=== PATIENT | female | born 1965 | race Caucasian/White ===

== ENCOUNTER 2024-04-24 18:49 | Emergency (ER) | payer BC, SELFPAY ==
[2024-04-24 18:51] VITALS: BP 110/74
--- NOTE | 2024-04-24 19:18 | ED.GENMED ---
History of Present Illness
General
Chief Complaint: Heart Rate Problem
Source: patient
Exam Limitations: none
Time Seen by Provider: 04/24/24 19:08
Nursing documentation reviewed up to this point in time: agreed with
History of Present Illness
History of Present Illness:
58-year-old female acute onset of palpitations hour or so ago she was up all night feeling insomnia, diarrheal illness which is chronic worsened after having some gluten, no fevers, similar episode a few years ago after her father passed and
follow-up with her business performance analyst Dr. 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
Review of Systems
Review of Systems
All Other Systems: Not applicable
Constitutional: Denies fever or fatigue
Respiratory: Reports no symptoms
Cardiac: Reports chest pain and palpitations; Denies diaphoresis
ABD/GI: Reports diarrhea
: Reports no symptoms
Musculoskeletal: Reports no symptoms
Skin: Reports no symptoms
Neurological: Reports dizzy
Psychiatric: Reports no symptoms
Phy Exam
Physical Exam
Physical Exam:
Physical Exam
General: 58 female mild distress
Neck: No jaundice
Heart: Tachycardia
Lungs: no acute respiratory distress. clear bilaterally
Abdomen: Nontender
Neuro: alert and oriented. no focal neurological deficits
Skin: no rash
Psychiatric: well kept. interactive and cooperative
Extremities: no edema.
Course
Orders/Labs/Results
Orders:
Orders
04/24/24 18:53
Electrocardiogram (*1) Urgent
Reason for Study: Tachycardia
EKG- Treatment ONCE
04/24/24 19:16
Adenosine [Adenocard] 6 mg IV NOW STA
04/24/24 19:21
0.9% Sodium Chloride 1000 ml [Nss] 1,000 ml IV BOLUS
04/24/24 19:29
Complete Blood Count/With Diff Urgent
Comprehensive Metabolic Panel Urgent
Magnesium Urgent
TSH Urgent
04/24/24 19:31
Adenosine [Adenocard] 12 mg .ROUTE .STK-MED ONE
04/24/24 19:36
EKG [Electrocardiogram (*1)] Urgent
Reason for Study: Palpitations
Other Reason for Exam: in procedure
EKG- Treatment ONCE
Abnormal Lab Results
04/24/24
19:29
MCH 31.3 H pg
(27.0-31.0)
BUN 22 H mg/dl
(7-17)
04/24/24 19:29
04/24/24 19:29
Vital Signs
Initial and Last Documented VS:
Initial Vital Signs
Temp Pulse Resp BP Pulse Ox
97.4 F 185 22 110/74 96
04/24/24 18:51 04/24/24 18:51 04/24/24 18:51 04/24/24 18:51 04/24/24 18:51
Last Documented Vital Signs
Temp Pulse Resp BP Pulse Ox
97.4 F 92 17 102/73 95
04/24/24 18:51 04/24/24 19:48 04/24/24 19:48 04/24/24 19:48 04/24/24 19:48
Procedures
Other
Indication for procedure:: SVT
Procedure completed by: chris
Consent form signed: No
If no, reason: Emergency procedure
Additional Procedure:
Verbal consent, timeout vagal maneuvers unsuccessful, patient successfully converted after 6 mg of adenosine
MDM/Problems Addressed
Differential Diagnosis Includes:
SVT AVNRT A-fib 2-1 a flutter
MDM/Problems Addressed:
Tachycardia
Chronic conditions affecting care:
Rhea's
Acute Exacerbation and/or Progression of Chronic Illness:
Rhea's possible prior arrhythmia
Acute Exacerbation and/or Progression of Chronic Illness: Arrhythmia
*Pulse Oximetry
Patient hypoxic: no
*EKG
Interpreted by ED Provider?: Yes
Interpretation: abnormal
Comparison EKG: no comparison EKG present
Heart Rate: 160
Rate: tachycardiac
Rhythm: SVT
Ischemia: non-specific ST changes
*Design And Sales Consultant Interpretation
Rate: tachycardiac
Interpretation: abnormal
Heart Rate: 170
Rhythm: SVT
*Critical Care Note
Total Time (30-74mins, 75-104mins- exclusive of procedures): 30
Update Note
Update Note:
Update
no success with vagal maneuvers, will proceed with adenosine
Echo reviewed no valvular disease normal EF
8:12 PM
Patient remains in normal sinus rhythm feels much better labs are noted TSH is pending
ED Attending Note
-
Portions of this chart may have been created with voice recognition software.� Occasional wrong word or��sound alike� substitutions may have occurred due to the inherent limitations of voice recognition software.
Discharge Plan
Departure
Patient Disposition: Home (Routine Discharge)
Date of Disposition: 04/24/24
Time of Disposition: 20:12
Patient with high blood pressure during this ER visit?: No
Condition: Good
Covid-19: Not Applicable
Discharge Problem:
Paroxysmal SVT (supraventricular tachycardia)
Instructions: Supraventricular tachycardia (SVT)
Prescriptions:
No Action
cyclobenzaprine 10 mg Tablet
10 mg PO DAILYPRN PRN (Reason: muscle spasms)
B Complex Tablet Extended Release
1 tab PO DAILY
levothyroxine 25 mcg tablet
25 mcg PO DAILY
meloxicam 7.5 mg Tablet
7.5 mg PO DAILYPRN PRN (Reason: mild pain)
zinc sulfate 50 mg zinc (220 mg) Tablet
50 mg PO DAILY
ascorbic acid (vitamin C) [Vitamin C] 500 mg Tablet
500 mg PO DAILYPRN PRN (Reason: supplement)
ibuprofen 200 mg Tablet
400 mg PO Q6HPRN PRN (Reason: mild pain)
coenzyme Q10 [Co Q-10] 100 mg Capsule
100 mg PO DAILYPRN PRN (Reason: supplement)
rosuvastatin 10 mg tablet
10 mg PO DAILY
cholecalciferol (vitamin D3) 25 mcg (1,000 unit) Tablet
25 mcg PO DAILY
[place] 3 Fish Oil 684-1,200 mg Capsule,Delayed Release(Dr/Ec)
1 cap PO DAILY
Referrals:
Reynold Sam MD [Active] - Next open appointment
Activity Restrictions/Additional Instructions:
Drink plenty of fluids
Follow-up with your business performance analyst call Saturday for an appointment
Return to the ER for recurrent or worsening symptoms
Interventions
Interventions:
*Risk Screen - Suicide Last Done: 04/24/24 18:51
*General Assessment Last Done: 04/24/24 18:51
*Neglect/Abuse Screening Last Done: 04/24/24 18:51
ED- Fall Risk Assessment Last Done: 04/24/24 19:41
*ED COVID-19 Vaccine History Last Done: 04/24/24 19:41
ED- Cardiac Assessment Last Done: 04/24/24 19:41
ED- Pulmonary Assessment Last Done: 04/24/24 19:41
Discharge Date and Time
Print Language: GHANAIAN
[2024-04-24] MEDS: NSS 1000 IV (19:35)
[2024-04-24 19:40] LABS: % Basophils 0.5 % (0-2); % Eosinophils 1.7 % (0-6); % Immature Granulocytes 0.2 % (0-0.5); % Lymphocytes 25.1 % (20.5-51.1); % Monocytes 6.7 % (1.7-9.3); % Neutrophils 65.8 % (42.2-75.2); Absolute Eosinophils 0.1 10^3/uL (0-0.7); Absolute Lymphocytes 1.5 10^3/uL (1.2-3.4); Absolute Monocytes 0.4 10^3/uL (0.1-0.6); Absolute Neutrophils 3.9 10^3/uL (1.4-6.5); Hematocrit 38.6 % (37.0-47.0); Hemoglobin 13.5 g/dL (12.0-16.0); Mean Corpuscular Hgb 31.3 pg (27.0-31.0); Mean Corpuscular Volume 89.6 fL (81.0-99.0); Nucleated Red Blood Cells % 0 %; Platelet Count 230 10^3/uL (130-400); Red Blood Cell Count 4.31 10^6/uL (4.20-5.40); Red Cell Dist. Width 12.2 % (11.5-14.5); White Blood Cell Count 5.9 10^3/uL (4.8-10.8)
[2024-04-24] MEDS: ADENOCARD 6 MG IV (19:40)
[2024-04-24 19:41] VITALS: BMI 25.5
[2024-04-24 19:48] VITALS: BP 102/73
[2024-04-24 19:53] LABS: ALT (SGPT) 24 U/L (0-35); AST (SGOT) 32 U/L (14-36); Albumin 4.6 g/dl (3.5-5.0); Alkaline Phosphatase 63 U/L (38-126); Blood Urea Nitrogen 22 mg/dl (7-17); Calcium 9.5 mg/dl (8.4-10.2); Carbon Dioxide 24 mmol/L (22-30); Chloride 106 mmol/L (98-107); Estimated Creatinine Clearance 50 ml/min; Glucose 94 mg/dl (70-99); Magnesium 1.7 mg/dl (1.6-2.3); Potassium 3.9 mmol/L (3.5-5.1); Sodium 139 mmol/L (135-145); eGFR > 60.00
[2024-04-24 20:00] VITALS: BP 104/75
[2024-04-24 20:28] LABS: TSH 3.07 uIU/ml (0.47-4.68)
[2024-04-24 20:30] VITALS: BP 94/68
[2024-04-24 21:00] VITALS: BP 90/67
== END 2024-04-24 21:33 | disposition home or self-care (01) ==
LOC: EMR 18:49
PROVIDERS: EMERGENCY PHYSICIAN Emergency Medicine; FAMILY PHYSICIAN Family Medicine
DX: I47.19 Other supraventricular tachycardia (principal); G47.00 Insomnia, unspecified; E06.3 Autoimmune thyroiditis
CPT/HCPCS: 99283; 96360; 80053; 83735; 84443; 85025; 93005; J0153